=== PATIENT | male | born 1990 | race African-American/Black ===

== ENCOUNTER 2017-01-21 19:01 | Emergency (ER) | payer OTHER ==
[~2017-01-21] VITALS: Ht 182.9 cm; Wt 86.2 kg
--- NOTE | 2017-01-21 20:16 | ED HEAD/FACIAL INJ COMPLAINT ---
History of Present Illness General Chief Complaint: Facial or Head Injury Stated Complaint: SPLIT LIP FROM BASKETBALL Source: patient, friend Exam Limitations: no limitations Vital Signs & Intake/Output Vital Signs & Intake/Output Vital Signs Date Time Temp Pulse Resp B/P Pulse O2 O2 Flow FiO2 Ox Delivery Rate 01/21 1918 98.2 72 18 139/84 97 Room Air Allergies Coded Allergies: No Known Allergies (01/21/17) Reconcile Medications Amoxicillin 875 MG TABLET 1 TAB PO BID wound prophylaxis Ibuprofen 800 MG TABLET 1 TAB PO Q8 PRN PAIN Triage Note: RECEIVED 26 YO MALE C/O UPPER LIP LACERATION. PT WAS HIT IN LIP WHILE PLAYING BASKETBALL. GAPING LAC NOTED. Triage Nurses Notes Reviewed? yes HPI: Patient is a 26 year old male presents complaining of laceration to left upper lip. Patient was playing basketball and was elbowed in the lip. Pain is currently mild to moderate, worsens with palpation. Patient is unsure of his last tetanus immunization. Denies loss of consciousness, dental injury. Past History Travel History Traveled to [place] past 21 day No Medical History Any Pertinent Medical History? none Neurological: NONE EENT: NONE Cardiovascular: NONE Respiratory: NONE Gastrointestinal: NONE Hepatic: NONE Renal: NONE Musculoskeletal: NONE Psychiatric: NONE Endocrine: NONE Blood Disorders: NONE Cancer(s): NONE Surgical History Surgical History: non-contributory Psychosocial History What is your primary language Macedonian Tobacco Use: Current Daily Use Daily Tobacco Use Amount/Type: => 5 Cigarettes daily Family History Hx Contributory? No Review of Systems Review of Systems Constitutional: Reports: no symptoms. Cardiovascular: Denies: chest pain, syncope. GI: Denies: abdominal pain, vomiting. Musculoskeletal: Denies: back pain, neck pain. Skin: Reports: see HPI. Neurological/Psychological: Denies: headache, numbness. Hematologic/Endocrine: Reports: bleeding (from wound). Immunologic/Allergic: Denies: splenectomy. Physical Exam Physical Exam General Appearance: well developed/nourished, alert, awake Head: normal appearance, 2 cm laceration to the left upper lip that extends through to the oral cavity. Eyes: Bilateral: normal appearance, PERRL, EOMI. Ears, Nose, Throat: hearing grossly normal, no dental tenderness or trauma Neck: normal inspection, supple, full range of motion Respiratory: no respiratory distress Back: normal inspection, normal range of motion Psychiatric: awake, alert, oriented x 3 Cranial Nerves: normal hearing, normal speech, PERRL Coordination/Gait: normal gait Motor/Sensory: no motor/sensory deficits Skin: warm/dry Diagram Head: 1) 2 cm laceration, goes through and into the oral cavity. No dental tenderness, no tooth fracture. Progress Differential Diagnosis: laceration, foreign body, dental trauma, facial bone fracture Plan of Care: Current Medications Sig/Mitesh Start time Last Medication Dose Stop Time Status Admin Lidocaine 20 ML ONCE ONE 01/21 2030 UNVr (Lidocaine 1%) 01/21 2031 See procedure note No acute neurologic abnormalities. No bony tenderness. Neuro imaging and facial bone imaging deferred. (NICOLE CHOE,RUSTY) Departure Departure Time of Disposition: 2100 Disposition: HOME OR SELF CARE Condition: Stable Clinical Impression Primary Impression: Lip laceration Qualifiers: Encounter type: initial encounter Qualified Code: S01.511A - Laceration without foreign body of lip, initial encounter Referrals: PATIENT HAS NO PRIMARY CARE DR (PCP/Family) Additional Instructions: Return to emergency department in 5 days for suture removal. Return immediately if pus from the wound, redness spreading from the wound, fevers, increasing pain , or worsening of symptoms. Departure Forms: Customer Survey General Discharge Information Prescriptions: Current Visit Scripts Amoxicillin 1 TAB PO BID #14 TAB Ibuprofen 1 TAB PO Q8 PRN PAIN #20 TAB Procedures Laceration/Wound Repair Progress: Area prepped with Betadine. 3 mL of 1% lidocaine injected to the area. Irrigated with 200 mL of sterile water. 3 subcutaneous 6-0 vicryl sutures simple interrupted placed. 3 vicryl 6-0 simple interrupted cutaneous sutures placed in lip 1 surgipro 5-0 simple interrupted suture placed.
[2017-01-21] MEDS ORDERED: IBUPROFEN800 M1 PO (21:02)
[2017-01-21] MEDS ORDERED: AMOXICILLIN875 M1 PO (21:02)
[2017-01-21 21:03] VITALS: BP 124/72
== END 2017-01-21 21:07 ==
LOC: ERH 19:01
DX: S01.511A Laceration without foreign body of lip, initial encounter (principal); W21.05XA Struck by basketball, initial encounter; Y93.67 Activity, basketball; Y92.9 Unspecified place or not applicable
CPT/HCPCS: 90471; 90714